=== PATIENT | female | born 1975 | race Caucasian/White ===

== ENCOUNTER 2019-05-20 09:03 | Outpatient (CLI) | payer BC ==
--- NOTE | 2019-05-20 10:30 | CT ---
CT abdomen and pelvis without Oral contrast was administered. INDICATIONS: Abdominal pain COMPARISON: None FINDINGS: 6 mm pleural-based nodule in the posterior right lung base. There may be faint central calcification within this nodule. Follow-up is suggested. Liver, spleen, and pancreas appear unremarkable. Stomach and duodenum appear unremarkable. Adrenal glands appear normal. Review of the kidneys reveals a 3 to 4 mm nonobstructing calculus in the lower pole collecting struct ures of left kidney. No hydronephrosis. Ureters appear normal. No evidence of ureteral obstruction. The urinary bladder is contracted and not well evaluated. Small bowel loops are normal caliber and exhibit normal fold pattern. Appendix is identified and appears unremarkable. Colon is unremarkable. Aorta is normal caliber. No evidence of retroperitoneal or mesenteric adenopathy. Images of pelvis show evidence of hysterectomy. Subcutaneous tissues, abdominal wall, and muscular structures appear unremarkable. Osseous structures appear unremarkable. IMPRESSION: 1. Small pleural-based nodule right lung base. There may be cysts subtle central calcification. Follo w-up recommended. 2. Nonobstructing calculus in the upper tract structures of left kidney
== END 2019-05-20 09:04 | disposition home or self-care (01) ==
LOC: BICCT 09:03
PROVIDERS: ATTEND Family Medicine
DX: R10.9 Unspecified abdominal pain (principal); N20.0 Calculus of kidney; R91.1 Solitary pulmonary nodule
CPT/HCPCS: 74176

== ENCOUNTER 2021-06-02 16:30 | Inpatient (IN) | payer BC ==
[2021-06-07] MEDS ORDERED: Enoxaparin Sodium 40 MG/0.4 ML SYRINGE ONE (07:33)
[2021-06-07] MEDS ORDERED: Scopolamine 1.5 mg/72 hour Patch ONE (07:35)
[2021-06-07] MEDS ORDERED: cefOXitin Sodium/Dextrose 2 GM/50 ML BAG ONE (07:35)
[2021-06-07] MEDS ORDERED: Bupivacaine 0.25% HCL 30 ML VIAL ONE (09:12)
[2021-06-07] MEDS ORDERED: Lidocaine 1% w/Epinephrine 1:100K 20 ML VIAL ONE (09:12)
[2021-06-07] MEDS ORDERED: Midazolam HCl 2 mg/2 ml Vial ONE (10:40)
[2021-06-07] MEDS ORDERED: diphenhydrAMINE 50 MG/ML VIAL IVP PRN (10:40)
[2021-06-07] MEDS ORDERED: Fentanyl 250 MCG/5 ML VIAL ONE (10:40)
[2021-06-07] MEDS ORDERED: hydrALAZINE 20 MG/ML VIAL SLOW IVP PRN (10:40)
[2021-06-07] MEDS ORDERED: Dextrose 50% Abboject 50 ML SYRINGE SLOW IVP PRN (10:40)
[2021-06-07] MEDS ORDERED: Hydrocodone-Acetamin 15 ML UDCUP PO PRN (10:40)
[2021-06-07] MEDS ORDERED: Dextrose 5% in Water 1,000 ML IV PRN (10:40)
[2021-06-07] MEDS ORDERED: Promethazine HCl 25 MG/ML VIAL IM PRN ×2 (10:40→12:22)
[2021-06-07] MEDS ORDERED: PHENYLEPHRINE-NS 100 MCG/ML 10 ML SYRINGE ONE (10:54)
[2021-06-07] MEDS ORDERED: Dexamethasone 20 MG/5 ML VIAL ONE (10:54)
[2021-06-07] MEDS ORDERED: Glycopyrrolate 0.2 MG/ML 5 ML SYRINGE ONE (10:54)
[2021-06-07] MEDS ORDERED: Ondansetron PF 4 MG/2 ML Vial ONE (10:54)
[2021-06-07] MEDS ORDERED: PROPOFOL 200 MG/20 ML VIAL ONE (10:54)
[2021-06-07] MEDS ORDERED: Lidocaine 1% PF 5 ML VIAL ONE (10:54)
[2021-06-07] MEDS ORDERED: Rocuronium Bromide 10 MG/ML (10ML VIAL) ONE (10:54)
[2021-06-07] MEDS ORDERED: Promethazine HCl 25 MG/ML VIAL IVPB PRN (12:22)
[2021-06-07] MEDS ORDERED: Ondansetron HCl/PF 4 MG/2 ML Vial IVP PRN (12:22)
[2021-06-07] MEDS ORDERED: HYDROmorphone 2 MG/ML VIAL SLOW IVP PRN (12:22)
[2021-06-07] MEDS ORDERED: HYDROmorphone 0.5 MG/0.5 ML SYRINGE ONE ×3 (13:14→13:39)
[2021-06-07] MEDS ORDERED: Fentanyl 100 MCG/2 ML VIAL ONE ×2 (13:47→14:21)
[2021-06-07] MEDS: D5 1/2 NS w/20 mEq KCL 1,000 ML IV SCH ×4 (16:15→23:39)
[2021-06-07] MEDS: Ketorolac Tromethamine 30 MG/ML VIAL IVP SCH ×3 (16:17→23:39)
[2021-06-07] MEDS: Metoprolol Tartrate 5 MG/5 ML VIAL IVP SCH ×3 (16:18→23:40)
[2021-06-07] MEDS: Morphine 4 MG/ML VIAL SLOW IVP PRN (16:21)
[2021-06-07] MEDS: Ondansetron PF 4 MG/2 ML Vial IVP PRN (19:00)
[2021-06-07 19:44] VITALS: BMI 40.2
[2021-06-08] MEDS: Ondansetron PF 4 MG/2 ML Vial IVP PRN (01:00)
[2021-06-08] MEDS: Morphine 4 MG/ML VIAL SLOW IVP PRN (02:54)
[2021-06-08] MEDS: Metoprolol Tartrate 5 MG/5 ML VIAL IVP SCH ×2 (05:17→11:35)
[2021-06-08] MEDS: Ketorolac Tromethamine 30 MG/ML VIAL IVP SCH ×2 (05:46→11:36)
[2021-06-08 06:25] LABS: #Lymphocytes 1.4 thou/uL (1.20-3.40); #Monocytes 0.8 thou/uL (0.11-0.59); #Neutrophils 11.7 thou/uL (1.40-6.50); %Basophils 0.3 % (0.0-1.0); %Eosinophils 0.1 % (0.0-10.0); %Lymphocytes 10.2 % (21.0-51.0); %Monocytes 5.5 % (0.0-10.0); Hemoglobin 10.1 g/dL (12.0-16.0); Mean Corpuscular HGB CONC 33.9 g/dL (32.0-36.0); Mean Corpuscular Volume 88.4 fL (78.0-98.0); Mean Platelet Volume 7.4 fL (7.4-10.4); Platelet Count 289 thou/uL (130-400); RBC Distribution Width 11.6 % (11.5-14.5); Red Blood Cell (RBC) Count 3.36 mill/uL (4.20-5.40); White Blood Cell (WBC) Count 13.9 thou/uL (4.8-10.8)
[2021-06-08 06:45] LABS: Anion Gap 10 mmol/L (10-20); BUN (Urea Nitrogen) 18 mg/dL (7.0-18.7); Calc. Creatinine Clearance 134 mL/min (70-130); Carbon Dioxide 23 mmol/L (22-29); Chloride 104 mmol/L (98-107); Glucose 138 mg/dL (70-105); Sodium 132 mmol/L (136-145)
[2021-06-08] MEDS ORDERED: Bupropion 100 MG SR TAB PO SCH (09:00)
[2021-06-08] MEDS ORDERED: Enoxaparin Sodium 40 MG/0.4 ML SYRINGE SC SCH (09:00)
[2021-06-08] MEDS ORDERED: Pantoprazole 40 MG VIAL IVP SCH (09:00)
[2021-06-08] MEDS ORDERED: Citalopram 20 MG TAB PO SCH (09:00)
[2021-06-08] MEDS: D5 1/2 NS w/20 mEq KCL 1,000 ML IV SCH (11:35)
[2021-06-08 15:41] VITALS: BP 90/58; TEMP 98.5
== END 2021-06-08 18:30 | disposition home or self-care (01) | DRG 621 ==
LOC: SURG A 06-07 07:01 → EDSTATUS 06-07 16:30
PROVIDERS: ADMIT Surgery; ATTEND Surgery
PROC: 0DB64Z3 Excision of Stomach, Percutaneous Endoscopic Approach, Vertical (ICD-10-PCS; principal; 2021-06-07)
PROC: 8E0W4CZ Robotic Assisted Procedure of Trunk Region, Percutaneous Endoscopic Approach (ICD-10-PCS; 2021-06-07)
DX: E66.01 Morbid (severe) obesity due to excess calories (principal); E78.5 Hyperlipidemia, unspecified; I10 Essential (primary) hypertension; Z68.41 Body mass index [BMI] 40.0-44.9, adult; Z88.1 Allergy status to other antibiotic agents; Z88.5 Allergy status to narcotic agent; Z88.8 Allergy status to other drugs, medicaments and biological substances; Z91.040 Latex allergy status; Z90.710 Acquired absence of both cervix and uterus; Z90.89 Acquired absence of other organs
CPT/HCPCS: 36415; 80048; 85025; 88307; 94760; C9113; J0694; J1100; J1170; J1650; J1885; J2250; J2270; J2405; J2550; J2704; J3010; J3480; S0020

== ENCOUNTER 2021-06-03 16:28 | Outpatient (CLI) | payer BC ==
[2021-06-04 12:08] LABS: SARS-CoV-2 PCR by NAA Not Detected (NotDetected)
== END 2021-06-03 16:29 | disposition home or self-care (01) ==
LOC: LABBT 16:28
PROVIDERS: ATTEND Surgery
DX: Z01.818 Encounter for other preprocedural examination (principal); Z20.822 Contact with and (suspected) exposure to COVID-19
CPT/HCPCS: 82040; 93005; 93010; U0003; U0005

== ENCOUNTER 2021-06-18 10:01 | Outpatient (CLI) | payer BC | END 2021-06-18 10:02 | disposition home or self-care (01) | LOC: ULT 10:01 | PROVIDERS: ATTEND Surgery | DX: R10.84 Generalized abdominal pain (principal); E80.6 Other disorders of bilirubin metabolism; K76.89 Other specified diseases of liver; K82.8 Other specified diseases of gallbladder | CPT/HCPCS: 76700 ==

== ENCOUNTER 2021-12-16 15:41 | Outpatient (CLI) | payer BC | END 2021-12-16 15:42 | disposition home or self-care (01) | LOC: BICMAMMO 15:41 | PROVIDERS: ATTEND Family Medicine | DX: Z12.31 Encounter for screening mammogram for malignant neoplasm of breast (principal); Z91.89 Other specified personal risk factors, not elsewhere classified | CPT/HCPCS: 77063; 77067 ==

== ENCOUNTER 2023-01-22 00:58 | Inpatient (IN) | payer BC ==
[2023-01-22 01:35] LABS: #Basophils 0.1 thou/uL (0.0-0.2); #Eosinphils 0.1 thou/uL (0.0-0.7); #Monocytes 0.7 thou/uL (0.11-0.59); #Neutrophils 11.4 thou/uL (1.40-6.50); %Basophils 0.4 % (0.0-1.0); %Eosinophils 0.4 % (0.0-10.0); %Lymphocytes 10.8 % (21.0-51.0); Mean Corpuscular HGB CONC 34.7 g/dL (32.0-36.0); Mean Corpuscular Volume 89.4 fl (78.0-98.0); Mean Platelet Volume 10.6 fL (7.4-10.4); Platelet Count 240 10x3/uL (130-400); RBC Distribution Width 13.4 % (11.5-14.5); Red Blood Cell (RBC) Count 4.52 mill/uL (4.20-5.40); White Blood Cell (WBC) Count 13.8 10x3/uL (4.8-10.8)
[2023-01-22] MEDS ORDERED: Promethazine HCl 12.5 MG in Sodium Chloride 0.9% 50 ML IVPB SCH (02:00)
[2023-01-22 03:35] LABS: Albumin 4.1 g/dL (3.5-5.0)
[2023-01-22 03:36] LABS: Chloride 105 mmol/L (98-107); Potassium 3.1 mmol/L (3.5-5.1); Sodium 138 mmol/L (136-145)
[2023-01-22 03:37] LABS: Calcium 8.6 mg/dL (7.8-10.44); Glucose 108 mg/dL (70-105)
[2023-01-22 03:38] LABS: Protein, Total 7.1 g/dL (6.0-8.3)
[2023-01-22 03:39] LABS: Anion Gap 12 mmol/L (10-20); Bilirubin, Total 1.5 mg/dL (0.2-1.2); Carbon Dioxide 24 mmol/L (22-29)
[2023-01-22 03:40] LABS: Alkaline Phosphatase 55 U/L (40-110)
[2023-01-22 03:41] LABS: Calc. Creatinine Clearance 0 mL/min (70-130); Estimated GFR 98
[2023-01-22 03:42] LABS: AST (SGOT) 422 U/L (5-34); BUN (Urea Nitrogen) 12 mg/dL (7.0-18.7)
[2023-01-22 03:43] LABS: ALT (SGPT) 181 U/L (8-55)
[2023-01-22 03:57] LABS: Lipase 11156 U/L (8-78)
[2023-01-22] MEDS ORDERED: Piperacillin/Tazobactam 3.375 GM VIAL ONE (05:01)
[2023-01-22] MEDS ORDERED: Ondansetron PF 4 MG/2 ML Vial IVP PRN (06:24)
[2023-01-22] MEDS ORDERED: Morphine 4 MG/ML VIAL SLOW IVP PRN ×2 (06:26→13:00)
[2023-01-22] MEDS ORDERED: Acetaminophen 500 MG TAB PO PRN (06:29)
[2023-01-22] MEDS ORDERED: Labetalol HCl 100 MG/20 ML VIAL SLOW IVP PRN (06:49)
[2023-01-22 06:52] VITALS: BMI 28.3
[2023-01-22] MEDS: Sodium Chloride 0.9% 1,000 ML IV SCH ×4 (06:58→23:38)
[2023-01-22 08:36] LABS: Cardiac Risk 2.7 (Less than 4.5); Magnesium 1.9 mg/dL (1.6-2.6)
[2023-01-22] MEDS ORDERED: Iopamidol-370 76% 500 ML MDV (1 ML CHARGE) ONE (10:38)
[2023-01-22] MEDS: traMADol HCl 50 MG TAB PO PRN (11:22)
[2023-01-22] MEDS: Potassium Chloride 20 MEQ in Premix Bag 1 BAG IVPB SCH ×2 (11:35→16:40)
[2023-01-22] MEDS: Piperacillin/Tazobactam 3.375 GM in Sodium Chloride 0.9% 100 ML IVPB SCH ×2 (11:38→17:15)
[2023-01-22] MEDS ORDERED: Potassium Chloride 20 MEQ TAB PO SCH (15:30)
[2023-01-23] MEDS: Piperacillin/Tazobactam 3.375 GM in Sodium Chloride 0.9% 100 ML IVPB SCH ×3 (01:10→17:55)
[2023-01-23] MEDS: Sodium Chloride 0.9% 1,000 ML IV SCH ×4 (05:34→21:02)
[2023-01-23 05:53] LABS: #Basophils 0.1 thou/uL (0.0-0.2); #Eosinphils 0.1 thou/uL (0.0-0.7); #Monocytes 0.3 thou/uL (0.11-0.59); #Neutrophils 4.5 thou/uL (1.40-6.50); %Basophils 0.9 % (0.0-1.0); %Eosinophils 1.1 % (0.0-10.0); %Lymphocytes 28.9 % (21.0-51.0); %Monocytes 4.3 % (0.0-10.0); %Neutrophils 64.5 % (42.0-75.0); Hemoglobin 13.5 g/dL (12.0-16.0); Mean Corpuscular HGB CONC 31.7 g/dL (32.0-36.0); Mean Corpuscular Hemoglobin 30.9 pg (27.0-31.0); Mean Corpuscular Volume 97.5 fl (78.0-98.0); Mean Platelet Volume 9.3 fL (7.4-10.4); Platelet Count 198 10x3/uL (130-400); RBC Distribution Width 12.3 % (11.5-14.5); Red Blood Cell (RBC) Count 4.37 mill/uL (4.20-5.40)
[2023-01-23 06:14] LABS: Phosphorus 2.6 mg/dL (2.3-4.7)
[2023-01-23 06:19] LABS: ALT (SGPT) 356 U/L (8-55); AST (SGOT) 239 U/L (5-34); Albumin 3.8 g/dL (3.5-5.0); Alkaline Phosphatase 63 U/L (40-110); Anion Gap 13 mmol/L (10-20); BUN (Urea Nitrogen) 10 mg/dL (7.0-18.7); Calc. Creatinine Clearance 111 mL/min (70-130); Calcium 8.4 mg/dL (7.8-10.44); Carbon Dioxide 19 mmol/L (22-29); Chloride 109 mmol/L (98-107); Estimated GFR 107; Globulin 2.5 g/dL (2.4-3.5); Glucose 58 mg/dL (70-105); Lipase 137 U/L (8-78); Magnesium 1.7 mg/dL (1.6-2.6); Potassium 3.6 mmol/L (3.5-5.1); Protein, Total 6.3 g/dL (6.0-8.3); Sodium 137 mmol/L (136-145)
[2023-01-23] MEDS ORDERED: Iopamidol 30 ML ONE (08:34)
[2023-01-23] MEDS ORDERED: Bupivacaine HCl 0.5%/Epinephrine 1:200,000/PF 30 ml Vial ONE (08:34)
[2023-01-23] MEDS ORDERED: Lidocaine 1% (PF) 30 ML VIAL ONE (08:34)
[2023-01-23] MEDS ORDERED: Sodium Chloride 0.9% 100 ML ONE (08:47)
[2023-01-23] MEDS ORDERED: Piperacillin/Tazobactam 3.375 GM VIAL ONE (08:47)
[2023-01-23] MEDS ORDERED: Midazolam HCl 2 mg/2 ml Vial ONE (08:52)
[2023-01-23] MEDS ORDERED: Propofol 1,000 MG/100 ML VIAL IV ONE (08:52)
[2023-01-23] MEDS ORDERED: fentaNYL PF 100 MCG/2 ML SYRINGE ONE (08:52)
[2023-01-23] MEDS ORDERED: SUGAMMADEX SODIUM 200 MG/2 ML VIAL ONE (08:52)
[2023-01-23] MEDS ORDERED: fentaNYL 50 mcg/mL 1 mL Vial ONE (08:53)
[2023-01-23] MEDS ORDERED: Ondansetron PF 4 MG/2 ML Vial ONE (09:05)
[2023-01-23] MEDS ORDERED: ePHEDrine Sulfate 50 MG/10 ML VIAL ONE (09:05)
[2023-01-23] MEDS ORDERED: PROPOFOL 200 MG/20 ML VIAL ONE (09:05)
[2023-01-23] MEDS ORDERED: PHENYLEPHRINE-NS 100 MCG/ML 10 ML SYRINGE ONE (09:05)
[2023-01-23] MEDS ORDERED: Esmolol 100 MG/10 ML VIAL ONE (09:05)
[2023-01-23] MEDS ORDERED: Rocuronium Bromide 10 MG/ML (10ML VIAL) ONE (09:05)
[2023-01-23] MEDS ORDERED: Lidocaine 1% PF 5 ML VIAL ONE (09:05)
[2023-01-23] MEDS ORDERED: Ketorolac Tromethamine 30 MG/ML VIAL ONE (09:05)
[2023-01-23] MEDS ORDERED: Dexamethasone 20 MG/5 ML VIAL ONE (09:05)
[2023-01-23] MEDS ORDERED: Meperidine HCl/PF 25 MG/ML VIAL SLOW IVP PRN (10:48)
[2023-01-23] MEDS ORDERED: HYDROmorphone 2 MG/ML VIAL SLOW IVP PRN (10:48)
[2023-01-23] MEDS ORDERED: Ondansetron HCl/PF 4 MG/2 ML Vial IVP PRN (10:48)
[2023-01-23] MEDS: Pantoprazole 40 MG VIAL IVP SCH (12:21)
[2023-01-23] MEDS: Morphine 2 MG/ML VIAL SLOW IVP PRN (20:34)
[2023-01-24] MEDS: traMADol HCl 50 MG TAB PO PRN (00:01)
[2023-01-24] MEDS: Piperacillin/Tazobactam 3.375 GM in Sodium Chloride 0.9% 100 ML IVPB SCH ×2 (01:16→09:38)
[2023-01-24] MEDS: Morphine 2 MG/ML VIAL SLOW IVP PRN ×2 (01:17→09:38)
[2023-01-24 06:10] LABS: #Basophils 0.1 thou/uL (0.0-0.2); #Monocytes 0.4 thou/uL (0.11-0.59); #Neutrophils 5.7 thou/uL (1.40-6.50); %Basophils 0.6 % (0.0-1.0); %Eosinophils 0.4 % (0.0-10.0); %Lymphocytes 20.5 % (21.0-51.0); %Monocytes 5.3 % (0.0-10.0); %Neutrophils 72.8 % (42.0-75.0); Hemoglobin 11.6 g/dL (12.0-16.0); Mean Corpuscular HGB CONC 34.3 g/dL (32.0-36.0); Mean Corpuscular Hemoglobin 30.9 pg (27.0-31.0); Mean Corpuscular Volume 89.9 fl (78.0-98.0); Mean Platelet Volume 9.3 fL (7.4-10.4); Platelet Count 199 10x3/uL (130-400); Red Blood Cell (RBC) Count 3.76 mill/uL (4.20-5.40); White Blood Cell (WBC) Count 7.9 10x3/uL (4.8-10.8)
[2023-01-24] MEDS: Sodium Chloride 0.9% 1,000 ML IV SCH (06:34)
[2023-01-24 06:35] LABS: ALT (SGPT) 213 U/L (8-55); AST (SGOT) 94 U/L (5-34); Albumin 3.2 g/dL (3.5-5.0); Alkaline Phosphatase 47 U/L (40-110); Anion Gap 10 mmol/L (10-20); BUN (Urea Nitrogen) 12 mg/dL (7.0-18.7); Bilirubin, Total 1.3 mg/dL (0.2-1.2); Calc. Creatinine Clearance 95 mL/min (70-130); Calcium 8.3 mg/dL (7.8-10.44); Carbon Dioxide 21 mmol/L (22-29); Chloride 109 mmol/L (98-107); Estimated GFR 95; Globulin 2.2 g/dL (2.4-3.5); Glucose 79 mg/dL (70-105); Magnesium 1.8 mg/dL (1.6-2.6); Potassium 3.7 mmol/L (3.5-5.1); Protein, Total 5.4 g/dL (6.0-8.3); Sodium 136 mmol/L (136-145)
[2023-01-24] MEDS: Pantoprazole 40 MG VIAL IVP SCH (09:39)
[2023-01-24 09:57] VITALS: BP 124/84; TEMP 98.3
== END 2023-01-24 14:08 | disposition home or self-care (01) | DRG 418 ==
LOC: ERS 00:58 → ERHOLD 06:00 → MSONC 08:34
PROVIDERS: ADMIT Internal Medicine; ATTEND Family Medicine
PROC: 0FT44ZZ Resection of Gallbladder, Percutaneous Endoscopic Approach (ICD-10-PCS; principal; 2023-01-23)
PROC: BF5 Imaging, Hepatobiliary System and Pancreas, Other Imaging (ICD-10-PCS; 2023-01-23)
DX: K85.10 Biliary acute pancreatitis without necrosis or infection (principal); K80.00 Calculus of gallbladder with acute cholecystitis without obstruction; K83.09 Other cholangitis; F32.A Depression, unspecified; F41.9 Anxiety disorder, unspecified; F90.9 Attention-deficit hyperactivity disorder, unspecified type; I10 Essential (primary) hypertension; E87.6 Hypokalemia; E66.01 Morbid (severe) obesity due to excess calories; Z68.28 Body mass index [BMI] 28.0-28.9, adult; Z90.49 Acquired absence of other specified parts of digestive tract; Z90.710 Acquired absence of both cervix and uterus; Z88.1 Allergy status to other antibiotic agents; Z88.5 Allergy status to narcotic agent; Z91.040 Latex allergy status; Z98.890 Other specified postprocedural states; Z79.899 Other long term (current) drug therapy
CPT/HCPCS: 36415; 47532; 71045; 74177; 76705; 80053; 80061; 83690; 83735; 84100; 84484; 85025; 87040; 88304; 93005; 96361; 96365; 96366; 96367; C1889; C9113; J1100; J1650; J1885; J2001; J2250; J2272; J2405; J2543; J2550; J2704; J3010; J3480; J3490; J7050; Q9967

== ENCOUNTER 2023-03-28 06:10 | Day surgery (SDC) | payer BC ==
[2023-03-24 12:36] VITALS: BMI 26.5
[~2023-03-28 06:10] MED LIST: EPINEPHrine 0.3 MG in Ophthalmic Irrigation Solution 500 ML IRR SCH
[2023-03-28] MEDS ORDERED: Cyclopentolate W/ Phenylephrin 40 DROP/2 ML BOT ONE ×3 (06:32→06:35)
[2023-03-28] MEDS ORDERED: fentaNYL PF 100 MCG/2 ML SYRINGE ONE (06:38)
[2023-03-28] MEDS ORDERED: Midazolam HCl 2 mg/2 ml Vial ONE ×2 (06:38→06:57)
[2023-03-28] MEDS ORDERED: Lidocaine 1% PF 5 ML VIAL ONE ×2 (07:07)
[2023-03-28] MEDS ORDERED: Triamcinolone 40 MG/ML VIAL ONE (07:07)
[2023-03-28] MEDS ORDERED: Bupivacaine 0.75% 10 ML VIAL ONE (07:07)
[2023-03-28] MEDS ORDERED: Maxitrol 0.1% Opth Oint 3.5 GM TUBE ONE (07:07)
[2023-03-28] MEDS ORDERED: PROPOFOL 200 MG/20 ML VIAL ONE (07:07)
[2023-03-28] MEDS ORDERED: Lidocaine 4% PF 5 ML AMP ONE (07:07)
[2023-03-28] MEDS ORDERED: CEFAZOLIN 1 GM VIAL ONE (07:07)
== END 2023-03-28 08:18 | disposition home or self-care (01) ==
LOC: SDC 06:10
PROVIDERS: ATTEND Ophthalmology Retina Specialist
PROC: 08T43ZZ Resection of Right Vitreous, Percutaneous Approach (ICD-10-PCS; principal; 2023-03-28)
DX: H43.391 Other vitreous opacities, right eye (principal); Z88.1 Allergy status to other antibiotic agents; Z88.6 Allergy status to analgesic agent; Z88.8 Allergy status to other drugs, medicaments and biological substances; Z91.040 Latex allergy status; Z91.048 Other nonmedicinal substance allergy status
CPT/HCPCS: J0171; J0690; J2250; J2704; J3301; J3490

== ENCOUNTER 2023-10-06 14:26 | Outpatient (CLI) | payer BC | END 2023-10-06 14:27 | disposition home or self-care (01) | LOC: BICMRI 14:26 | PROVIDERS: ATTEND Family Medicine | DX: S22.089A Unspecified fracture of T11-T12 vertebra, initial encounter for closed fracture (principal); M54.14 Radiculopathy, thoracic region; M48.04 Spinal stenosis, thoracic region; M40.204 Unspecified kyphosis, thoracic region | CPT/HCPCS: 72146 ==

== ENCOUNTER 2024-02-28 13:16 | Outpatient (CLI) | payer BC | END 2024-02-28 13:17 | disposition home or self-care (01) | LOC: BICMAMMO 13:16 | PROVIDERS: ATTEND Family Medicine | DX: Z12.31 Encounter for screening mammogram for malignant neoplasm of breast (principal); Z91.89 Other specified personal risk factors, not elsewhere classified | CPT/HCPCS: 77063; 77067 ==